=== PATIENT | male | born 1945 | race American Indian/Alaskan Native ===

== ENCOUNTER 2017-11-08 23:22 | Observation (INO) | payer OTHER, MEDICARE ==
[2017-11-09 01:07] LABS: Basophils # (Auto) 0.1 K/mm3 (0.0-0.1); Basophils % (Auto) 1.2 % (0.0-1.8); Eosinophils # (Auto) 0.2 K/mm3 (0.0-0.4); Eosinophils % (Auto) 3.4 % (0.0-4.3); Lymphocytes # (Auto) 1.7 K/mm3 (1.2-5.4); Lymphocytes % (Auto) 25.6 % (13.4-35.0); Mean Corpuscular HGB Conc 36 % (32-34); Mean Corpuscular Hemoglobin 34 pg (28-32); Mean Corpuscular Volume 93 fl (84-94); Monocytes # (Auto) 0.5 K/mm3 (0.0-0.8); Monocytes % (Auto) 7.5 % (0.0-7.3); Platelet Count 329 K/mm3 (140-440); Red Blood Count 4.08 M/mm3 (3.65-5.03); Red Cell Distribution Width 12.7 % (13.2-15.2)
[2017-11-09 01:13] LABS: Hematocrit 38.1 % (35.5-45.6); Hemoglobin 13.9 gm/dl (11.8-15.2)
[2017-11-09 01:32] LABS: BUN/Creatinine Ratio 31; Blood Urea Nitrogen 25 mg/dL (9-20); Calcium 9.8 mg/dL (8.4-10.2); Hemolysis Index 5
--- NOTE | 2017-11-09 03:31 | Emergency Department Report ---
ED Chest Pain HPI - General Chief Complaint: Chest Pain Stated Complaint: CHEST PAIN/LEFT SIDE NUMBNESS Time Seen by Provider: 11/09/17 03:30 Source: patient, RN notes reviewed Mode of arrival: Ambulatory Limitations: No Limitations - History of Present Illness Initial Comments: This is a 72-year-old male who is unknown to this provider previously. His primary care doctor is Dr. Enamorado and he endorses a past medical history of hypertension. The patient presents to the ER with a complaint of nontraumatic Left-sided and central chest pain. It is intermittent and he is chest pain- free at this time. This pain is associated with left arm numbness. He denies nausea, vomiting, diaphoresis, shortness of breath, hematemesis, bright red blood per rectum. The pain does not have exacerbating or relieving factors. He denies DVT, pulmonary embolus risk factors. No recent aspirin use, no recent cocaine use, no history of family heart disease that he is aware of, and he indicates no recent cardiac risk stratification. MD Complaint: chest pain -: Gradual Pain Location: substernal, left chest Pain Radiation: none Severity: moderate (now resolved) Severity scale (0 -10): 7 Quality: aching Consistency: intermittent Improves With: nothing Worsens With: nothing re: denies: nausea, vomting, diaphoresis, dyspnea, sense of impending doom Treatments Prior to Arrival: none Aspirin use within the Past 7 Days: (0) No - Related Data On Oral Contraceptives: No Allergies Allergy/AdvReac Type Severity Reaction Status Date / Time No Known Allergies Allergy Verified 11/09/17 00:23 Heart Score - HEART Score History: Moderately suspicious EKG: Non-specific Age: > 65 Risk factors: 1-2 risk factors Troponin: 1-3x normal limit HEART Score: 6 - Critical Actions Critical Actions: 4-6 pts:12-16.6% risk of adverse cardiac event. Should be admitted ED Review of Systems ROS: Stated complaint: CHEST PAIN/LEFT SIDE NUMBNESS Other details as noted in HPI Comment: All other systems reviewed and negative Constitutional: denies: diaphoresis Eyes: denies: eye discharge ENT: denies: epistaxis Respiratory: denies: cough Cardiovascular: chest pain Gastrointestinal: denies: vomiting Genitourinary: as per HPI Musculoskeletal: as per HPI Skin: as per HPI Neurological: as per HPI Psychiatric: as per HPI ED Past Medical Hx - Past Medical History Hx Hypertension: Yes - Surgical History Past Surgical History?: No - Social History Smoking Status: Never Smoker Substance Use Type: None ED Physical Exam - General Limitations: No Limitations General appearance: alert, in no apparent distress - Head Head exam: Present: atraumatic, normocephalic - Eye Eye exam: Present: normal appearance, EOMI. Absent: nystagmus - ENT ENT exam: Present: normal exam, normal orophraynx, mucous membranes moist, normal external ear exam - Neck Neck exam: Present: normal inspection, full ROM - Respiratory Respiratory exam: Present: normal lung sounds bilaterally. Absent: respiratory distress - Cardiovascular Cardiovascular Exam: Present: regular rate, normal rhythm, normal heart sounds. Absent: bradycardia, tachycardia, irregular rhythm, systolic murmur, diastolic murmur, rubs, gallop - GI/Abdominal GI/Abdominal exam: Present: soft, normal bowel sounds. Absent: distended, tenderness, guarding, rebound, rigid, pulsatile mass - Rectal Rectal exam: Present: deferred - Extremities Exam Extremities exam: Present: normal inspection, full ROM, normal capillary refill , other (2+ pulses noted in the bilateral upper, lower extremities. Compartments soft. No long bony tenderness. The pelvis is stable.). Absent: tenderness, pedal edema, joint swelling, calf tenderness (there is no palpable cord. There is a negative Homans sign.) - Back Exam Back exam: Present: normal inspection, full ROM. Absent: tenderness, CVA tenderness (R), paraspinal tenderness, vertebral tenderness - Neurological Exam Neurological exam: Present: alert, oriented X3, CN II-XII intact, normal gait, other (Extraocular movements intact. Tongue midline. No facial droop. Facial sensation intact to light touch in the V1, V2, V3 distribution bilaterally. 5 and 5 strength in 4 extremities.. Sensation is intact to light touch in 4 extremities.). Absent: motor sensory deficit - Psychiatric Psychiatric exam: Present: normal affect, normal mood - Skin Skin exam: Present: warm, dry, intact, normal color. Absent: rash ED Course Vital Signs 11/08/17 11/09/17 11/09/17 23:35 02:14 03:00 Temperature 98.2 F 97.9 F Pulse Rate 68 69 58 L Respiratory 16 22 17 Rate Blood Pressure 168/84 149/87 Blood Pressure 165/98 [Left] O2 Sat by Pulse 97 98 95 Oximetry 11/09/17 04:00 Temperature Pulse Rate 62 Respiratory 18 Rate Blood Pressure 150/84 Blood Pressure [Left] O2 Sat by Pulse 96 Oximetry EMELYN score - Emelyn Score Age > 65: (1) Yes Aspirin use within the Past 7 Days: (0) No 3 or more CAD Risk Factors: (0) No 2 or more Angina events in past 24 hrs: (0) No Known CAD with more than 50% Stenosis: (0) No Elevated Cardiac Markers: (1) Yes ST Deviation Greater than 0.5mm: (0) No EMELYN Score: 2 ED Medical Decision Making - Lab Data Result diagrams: 11/09/17 00:45 11/09/17 00:45 - EKG Data -: EKG Interpreted by Me EKG shows normal: sinus rhythm, axis, intervals, QRS complexes, ST-T waves - EKG Data When compared to previous EKG there are: previous EKG unavailable - Radiology Data Radiology results: image reviewed interpreted by me: x-ray the chest is negative for acute disease. - Medical Decision Making Differential diagnosis, including but not limited to: Acute coronary syndrome, pneumonia, pericarditis, myocarditis, pneumothorax Assessment and plan: 72-year-old male, low risk by well's criteria, denies pulmonary embolus, DVT risk factors, with chest pain that is moderate risk by the heart score. Initial troponin is negative, subsequently positive. He is chest pain-free at this time. X-ray the chest is unremarkable. Patient will be admitted to the hospital for moderate risk cardiac risk stratification. Case is discussed with consult and cardiology, Dr. Mark Dawn, and Dr Castro, the hospital physician Cardiology will follow in consultation, and the hospital team/hospitalist agreed to admit the patient this plan is discussed with the patient and he is amenable to hospital admission for further evaluation and workup. Critical care attestation.: If time is entered above; I have spent that time in minutes in the direct care of this critically ill patient, excluding procedure time. ED Disposition Clinical Impression: Chest pain, Elevated troponin I level Disposition: OP ADMIT IP TO THIS HOSP Is pt being admited?: Yes Does the pt Need Aspirin: Yes Condition: Good Instructions: Chest Pain (ED) Referrals: PRIMARY CARE, [Primary Care Provider] - 3-5 Days
[2017-11-09] MEDS ORDERED: BABY ASPIRIN PO ONE (03:43)
--- NOTE | 2017-11-09 04:20 | XRay Report ---
FINAL REPORT EXAM: XR CHEST ROUTINE 2V HISTORY: cp TECHNIQUE: PA and lateral chest radiographs PRIORS: None. FINDINGS: No mediastinal shift. Cardiac silhouette is not enlarged. No pneumothorax, effusion, or focal pulmonary opacity. No acute skeletal finding. IMPRESSION: No focal pulmonary opacity.
[2017-11-09 04:33] LABS: Chol/HDL Ratio 3.75 %
[2017-11-09] MEDS ORDERED: NITROSTAT SL PRN (04:50)
--- NOTE | 2017-11-09 08:39 | History and Physical Report ---
History of Present Illness Date of examination: 11/09/17 Date of admission: 11/09/17 Chief complaint: chest pain History of present illness: This is a 72-year-old male with h/o HTN on lisinopril primary care doctor is Dr. Enamorado presents to the ER with a complaint of Left-sided and central chest pain. the pain described as intermittent pressure type, associated with left arm numbness w/o nausea, vomiting, diaphoresis, shortness of breath. Pain lasted for more than a hour and he is chest pain-free at this time of encounter. The pain does not have exacerbating or relieving factors. He has no recent aspirin use, no recent cocaine use, no history of family heart disease that he is aware of, and he indicates no recent cardiac work up ever done. he noted to have elevated troponin in the ER, nonspecific changes in EKG. he is getting admitted for further evaluation and management. Past medical History: h/o HTN Past surgical History: None Social History: Lives with family, denies any smoking, drinking and elicit drug abuse. Family History: No known FH of HD, CVA or lung disease Review of System: Constitutional: no fever, no chills, no weight loss Ears, eyes, nose, mouth and throat: no nasal congestion, no nasal discharge, no sinus pressure, no vision change, no red eye. Neck: No neck pain or rigidity. Cardiovascular: +chest pain but now resolved, no orthopnea, no palpitations, no leg swelling Respiratory: No shortness of breath, no cough, no congestion, no wheezing Gastrointestinal: no abdominal pain, no nausea, no vomiting Genitourinary : no dysuria, no hematuria Musculoskeletal: no joint swelling or muscle ache Integumentary: no rash, no pruritis Neurological: no parathesias, no numbness, no tingling Endocrine: no cold or heat intolerance, no polyuria or polydipsia Hematologic/Lymphatic: no easy bruising, no easy bleeding, no gland swelling Allergic/Immunologic: no urticaria, no angioedema. Medications and Allergies Allergies Allergy/AdvReac Type Severity Reaction Status Date / Time No Known Allergies Allergy Verified 11/09/17 00:23 Home Medications Medication Instructions Recorded Confirmed Last Taken Type Hydrochlorothiazide [Hctz] 12.5 mg PO QDAY 11/09/17 11/09/17 1 Day Ago History ~11/08/17 Lisinopril [Zestril] 40 mg PO DAILY 11/09/17 11/09/17 1 Day Ago History ~11/08/17 Active Meds: Active Medications Nitroglycerin (Nitrostat) 0.4 mg SL .Q5MIN PRN PRN Reason: Chest Pain Exam - Physical Exam Narrative exam: GENERAL: well-developed and well-nourished AAM lying on bed appeared to be in no discomfort. HEENT: Normocephalic. Atraumatic. No conjunctival congestion or icterus. Patient has moist mucous membranes. NECK: Supple. Trachea midline. CHEST/LUNGS: Clear to auscultated bilaterally, breathing nonlabored. No wheezes crackles or rhonchi. HEART/CARDIOVASCULAR: Regular in rate and rhythm. S1 and S2 positive. ABDOMEN: Abdomen is soft, nontender. Patient has normal bowel sounds. SKIN: There is no rash. Warm and dry. NEURO: No focal motor deficit. Follows command. MUSCULOSKELETAL: No joint effusion or tenderness. EXTRIMITY: No edema, no cyanosis or clubbing. PSYCH: Cooperative. - Constitutional Vitals: Temp Pulse Resp BP Pulse Ox 97.9 F 57 L 15 139/78 96 11/09/17 02:14 11/09/17 07:00 11/09/17 07:00 11/09/17 07:00 11/09/17 07:00 Results - Labs CBC & Chem 7: 11/10/17 06:19 11/10/17 06:19 Labs: Abnormal lab results 11/09/17 11/09/17 11/09/17 Range/Units 00:45 00:45 03:42 MCH 34 H (28-32) pg MCHC 36 H (32-34) % RDW 12.7 L (13.2-15.2) % [place] % (Auto) 7.5 H (0.0-7.3) % BUN 25 H (9-20) mg/dL Troponin T 0.030 H D (0.00-0.029) ng/mL 11/09/17 Range/Units 06:52 MCH (28-32) pg MCHC (32-34) % RDW (13.2-15.2) % [place] % (Auto) (0.0-7.3) % BUN (9-20) mg/dL Troponin T 0.048 H D (0.00-0.029) ng/mL - Imaging and Cardiology Chest x-ray: report reviewed (no infiltrates) Assessment and Plan chest pain with elevated troponin/NSTEMI - will admit to telemetry bed - monitor with serial CE and EKG - will place on Aspirin, statin - as needed SL NTG and iv morphin for pain - order 2D echo and stress test today - cardiac diet now, consulted cardiology - provide therapeutic dose of lovenox HTN, - Monitor BP, add low dose norvasc - No BB for low HR, no ACEI had cough with lisinoril DVT Px, on lovenox
[2017-11-09] MEDS ORDERED: LOVENOX SUB-Q SCH ×2 (10:00)
[2017-11-09] MEDS: ASPIRIN PO SCH (11:48)
--- NOTE | 2017-11-09 11:48 | Consultation ---
History of Present Illness Consult date: 11/09/17 Medications and Allergies Allergies Allergy/AdvReac Type Severity Reaction Status Date / Time No Known Allergies Allergy Verified 11/09/17 00:23 Active Meds: Active Medications Aspirin (Aspirin) 325 mg PO QDAY RAUL Atorvastatin Calcium (Lipitor) 40 mg PO QHS [facility] Enoxaparin Sodium (Lovenox) 80 mg 1 mg/kg (80 mg) SUB-Q Q12HR RAUL Nitroglycerin (Nitrostat) 0.4 mg SL .Q5MIN PRN PRN Reason: Chest Pain Physical Examination Vital Signs Temp Pulse Resp BP Pulse Ox 98.2 F 68 16 168/84 97 11/08/17 23:35 11/08/17 23:35 11/08/17 23:35 11/08/17 23:35 11/08/17 23:35 Results 11/09/17 00:45 11/09/17 00:45 Lipids 11/09/17 Range/Units 03:42 Triglycerides 147 (2-149) mg/dL Cholesterol 180 (50-199) mg/dL HDL Cholesterol 48 (40-59) mg/dL Cholesterol/HDL Ratio 3.75 % CBC 11/09/17 Range/Units 00:45 WBC 6.5 (4.5-11.0) K/mm3 RBC 4.08 (3.65-5.03) M/mm3 Hgb 13.9 (11.8-15.2) gm/dl Hct 38.1 (35.5-45.6) % Plt Count 329 (140-440) K/mm3 Lymph # 1.7 (1.2-5.4) K/mm3 [place] # 0.5 (0.0-0.8) K/mm3 Eos # 0.2 (0.0-0.4) K/mm3 Baso # 0.1 (0.0-0.1) K/mm3 Comprehensive Metabolic Panel 11/09/17 Range/Units 00:45 Sodium 140 (137-145) mmol/L Potassium 4.7 (3.6-5.0) mmol/L Chloride 99.6 (98-107) mmol/L Carbon Dioxide 29 (22-30) mmol/L BUN 25 H (9-20) mg/dL Creatinine 0.8 (0.8-1.5) mg/dL Glucose 91 (75-100) mg/dL Calcium 9.8 (8.4-10.2) mg/dL Assessment and Plan full consult dictated thx
--- NOTE | 2017-11-09 16:09 | Event Note ---
Date: 11/09/17 Treadmill stress test terminated due to very poor exercise tolerance and ECG changes. Coronary angiography recommended for definitive diagnosis. Indications , potential risks and benefits of LHC reviewed with pt and he is agreeable to proceed in AM. NPO after MN. D/w Dr. Multani. Pascale MIKE, [employer] COUN[employer] / DR. Bridger ZIMMERMAN
[2017-11-09] MEDS ORDERED: NACL 0.9% 500 ML 500 ML IV SCH (17:00)
--- NOTE | 2017-11-09 23:40 | Consultation ---
CARDIOLOGY CONSULTATION Seen in the Emergency Room. REFERRING PHYSICIAN: ER physician, Dr. Jimenez. REASON FOR CONSULTATION: Advice and opinion regarding chest pain. 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 Describes the chest pain as sharp, occasional left arm numbness, not exertional. No chest pain since arrival. No syncope or presyncope. Relatively active in general, lifetime nonsmoker, nondrinker. Happily , 1 child; 1 daughter who is a pharmacist in pharmacy school. He used to live in the [facility], moved to this area recently. Currently without any symptoms, feels " PAST MEDICAL HISTORY: Hypertension. FAMILY HISTORY: No family history of premature heart disease. MEDICATIONS: Lisinopril at home. ALLERGIES: No known drug, food, or environmental allergies. REVIEW OF SYSTEMS: As per HPI. No bleeding, hematochezia, hemoptysis, hematemesis, nausea, vomiting, fever, chills, blurred vision, headache or rashes. PHYSICAL EXAMINATION: VITAL SIGNS: Blood pressure is 118/70, is afebrile. Tele reveals sinus rhythm with a heart rate in his 50s and 60s. O2 sats 98% on room air. GENERAL: This is an elderly gentleman, in no apparent distress, oriented x 3. HEENT: Sclerae are anicteric. PERRLA. NECK: Supple, no masses, no JVD. CHEST: Clear to auscultation bilaterally, good air movement. CARDIOVASCULAR: Regular rhythm, S1, S2. ABDOMEN: Soft, nontender, nondistended. Normoactive bowel sounds in 4 quadrants. No mass or bruits. EXTREMITIES: No cyanosis, clubbing, edema. Good peripheral pulses. SKIN: Intact. No rashes. EKG reveals normal sinus rhythm, no acute ST segment shift. LABORATORY DATA: Troponin 0.03, 0.04. Creatinine normal. WBC 6.5, hemoglobin is 13.9, hematocrit 38.1, platelets 329. Chest x-ray is unremarkable per Radiology. CONCLUSION: In summary, the patient is a very pleasant 72-year-old gentleman: 1. Chest pain with mostly atypical features, unremarkable troponins, EKG. Chest pain now resolved. 2. History of hypertension. We will check an echocardiogram. Treadmill stress test. We will follow up once these tests are completed. He has been given aspirin and statin therapy. Also started on enoxaparin. Further plans based on test results. Thank you for this kind consultation. I will be happy to follow along with you. JOB# [id number] DANAY/NTS
[2017-11-10 06:56] LABS: Basophils # (Auto) 0.1 K/mm3 (0.0-0.1); Eosinophils # (Auto) 0.2 K/mm3 (0.0-0.4); Eosinophils % (Auto) 3.7 % (0.0-4.3); Hematocrit 39.7 % (35.5-45.6); Hemoglobin 13.3 gm/dl (11.8-15.2); Lymphocytes # (Auto) 2.5 K/mm3 (1.2-5.4); Mean Corpuscular HGB Conc 34 % (32-34); Mean Corpuscular Hemoglobin 32 pg (28-32); Mean Corpuscular Volume 95 fl (84-94); Monocytes # (Auto) 0.5 K/mm3 (0.0-0.8); Monocytes % (Auto) 8.6 % (0.0-7.3); Platelet Count 317 K/mm3 (140-440); Red Blood Count 4.16 M/mm3 (3.65-5.03); Red Cell Distribution Width 12.8 % (13.2-15.2)
[2017-11-10 07:06] LABS: INR 1.02 (0.87-1.13)
[2017-11-10 07:17] LABS: BUN/Creatinine Ratio 30; Blood Urea Nitrogen 21 mg/dL (9-20); Calcium 9.3 mg/dL (8.4-10.2); Hemolysis Index 4
[2017-11-10] MEDS ORDERED: HEPARIN/NS 5000 UNIT/500ML(CATH LAB) 1,000 ML IR ONE (09:03)
[2017-11-10] MEDS ORDERED: HEPARIN 10,000 UNITS/10 ML ONE (09:04)
[2017-11-10] MEDS ORDERED: NITROGLYCERIN SYRINGE 3 ML ONE (09:04)
[2017-11-10] MEDS ORDERED: NACL 0.9% 500 ML 500 ML ONE (09:04)
[2017-11-10] MEDS ORDERED: CALAN ONE (09:04)
[2017-11-10] MEDS: ASPIRIN PO SCH (09:17)
[2017-11-10] MEDS: SUBLIMAZE ONE ×2 (09:52→09:55)
[2017-11-10] MEDS: VERSED ONE ×2 (09:52→09:55)
[2017-11-10] MEDS: XYLOCAINE 2% INFILTRATI ONE ×2 (09:52→09:55)
[2017-11-10] MEDS ORDERED: NACL 0.9% 50 ML ONE (10:03)
[2017-11-10] MEDS: ANGIOMAX IV ONE ×2 (10:04→10:08)
[2017-11-10] MEDS ORDERED: ATROPINE 0.1% (CARDIAC) ONE (10:08)
[2017-11-10] MEDS ORDERED: ALUM-MAG HYDROX-SIMETH 200-200-20MG/5ML ONE (10:36)
[2017-11-10] MEDS ORDERED: EFFIENT PO ONE (10:36)
--- NOTE | 2017-11-10 11:27 | Cardiac Catherization Report ---
CARDIAC CATHETERIZATION REFERRING PHYSICIAN: Dr. Multani INDICATIONS FOR PROCEDURE: The patient is an exceedingly pleasant 72-year-old -[place] gentleman with multiple risk factors, presents with unstable angina, found to have a markedly abnormal treadmill stress test, referred for left heart catheterization, symptomatic on antianginals. Risks, benefits, alternatives were discussed at length prior to obtaining informed consent. PROCEDURE IN DETAIL: The patient was brought to the catheterization lab in postabsorptive state, prepped and draped in sterile fashion. Alan's test in right hand was normal. A 2 mL of 2% lidocaine was used to anesthetize the right wrist. A standard 6-Japanese hydrophilic sheath was used to cannulate the right radial artery via modified Seldinger technique. All exchanges were performed to exchange a J-tip guidewire. A JL3.5 catheter was used to engage the left main. No dampening or ventricularization. Cineangiography was performed in all projections. JR4 catheter was used to cross the aortic valve under fluoroscopic guidance. Left ventriculography was performed in 30 LOZA and MIGUEL A projections via hand injections, catheter flushed, manual pullback performed. Continuous pressure monitoring. Catheter was used to engage the right coronary. No dampening or ventricularization. Cineangiography was performed in all projections. Next, catheter was removed from the body of wire. I directly supervised the administration of moderate sedation from 9:50-10:25 with fentanyl and Versed. DATA: Aortic pressure is 170/70, LV pressure is 170, LVP of 12 mmHg. Left ventriculography revealed normal systolic performance with estimated ejection fraction of 55-60%. No evidence of aortic stenosis. CORONARY ANATOMY: Left main without significant disease, bifurcates in left anterior descending and left circumflex. Left circumflex is a moderate sized vessel, courses AV groove. No significant disease noted. LAD is a moderate sized vessel, courses anterior intergroove, wraps around the apex, no significant disease; however, left to right collaterals are identified. No significant disease in the left system. Right coronary reveals a 99% distal lesion with EMELYN 2 flow. This is the culprit lesion. Given the patient's on antianginals ischemia noted on treadmill EKG and symptoms, we decided to proceed with PCI. Angiomax was given. Abnormal ACT is confirmed. A 6-Japanese JR4 sidehole guide catheter was used to engage the vessel. The patient was loaded with aspirin, Effient. A [place] wire was used to cross the lesion without difficulty, predilated 2.0 x 8 balloon. We used a 2.25 x 12 Resolute drug-eluting stent deployed at 10 FERNANDO for 30 seconds. Excellent angiographic result. Intravascular ultrasound was performed and multiple passes were made revealed a well-opposed and well-expanded stent. Final angiogram reveals no complications. The patient tolerated the procedure well. There, IVUS revealed mild luminal irregularities throughout the remainder of the right coronary including ostium, maximal narrowing approximately a 20% in the mid segment. Excellent final angiographic and ultrasonographic results. CONCLUSIONS: 1. Severe single vessel coronary artery disease with a 99% distal right coronary stenosis with EMELYN 2 flow culprit lesion. Successful IVUS-guided PCI with placement of a drug-eluting stent (Resolute 2.25 x 12) with excellent final angiographic and angiographic results. 2. Nonobstructive disease in left system. 3. Preserved left ventricular systolic performance, estimated ejection fraction of 55-60%. 4. No evidence of aortic stenosis. At this point, continue medical management, risk factor modification, dual antiplatelet therapy, statin therapy, blood pressure control, standard groin care. The patient is stable to be transferred to telemetry. Results of procedure explained to the patient and family. All questions were addressed. JOB# [id number] DANAY/RAVINDER
--- NOTE | 2017-11-10 14:29 | Progress Note ---
Assessment and Plan Assessment: NSTEMI type I CAD s/p PCI of RCA HTN Plan: S/p [facility] with PCI of RCA this AM. Initiate DAPT with ASA and effient. Initiate low dose lopressor and resume home lisinopril. Cont lipitor. Cont observation on tele overnight. Likely d/c home in AM. The patient has been seen in conjunction with Dr. Fried who agrees with the assessment and plan of care. Subjective Date of service: 11/10/17 Principal diagnosis: cp Interval history: pt for [facility] today. no current complaints. Objective Last Vital Signs Temp 97.8 F 11/10/17 10:53 Pulse 78 11/10/17 14:15 Resp 16 11/10/17 14:15 BP 135/77 11/10/17 14:15 Pulse Ox 98 11/10/17 14:15 - Physical Examination General: No Apparent Distress HEENT: Positive: PERRL, Normocephaly, Mucus Membranes Moist Neck: Positive: neck supple, trachea midline Cardiac: Positive: Reg Rate and Rhythm, S1/S2 Lungs: Positive: clear to auscultation Neuro: Positive: Grossly Intact Abdomen: Positive: Soft. Negative: Tender Skin: Positive: Clear. Negative: Rash, Wound Musculoskeletal: No Fluid Collection, No Pain, Normal Range of Motion Extremities: Absent: edema - Labs and Meds Coagulation 11/10/17 Range/Units 06:19 PT 13.9 (12.2-14.9) Sec. INR 1.02 (0.87-1.13) CBC 11/10/17 Range/Units 06:19 WBC 5.4 (4.5-11.0) K/mm3 RBC 4.16 (3.65-5.03) M/mm3 Hgb 13.3 (11.8-15.2) gm/dl Hct 39.7 (35.5-45.6) % Plt Count 317 (140-440) K/mm3 Lymph # 2.5 (1.2-5.4) K/mm3 [place] # 0.5 (0.0-0.8) K/mm3 Eos # 0.2 (0.0-0.4) K/mm3 Baso # 0.1 (0.0-0.1) K/mm3 Comprehensive Metabolic Panel 11/10/17 Range/Units 06:19 Sodium 140 (137-145) mmol/L Potassium 4.6 (3.6-5.0) mmol/L Chloride 101.0 (98-107) mmol/L Carbon Dioxide 29 (22-30) mmol/L BUN 21 H (9-20) mg/dL Creatinine 0.7 L (0.8-1.5) mg/dL Glucose 93 (75-100) mg/dL Calcium 9.3 (8.4-10.2) mg/dL - Imaging and Cardiology EKG: report reviewed, image reviewed
--- NOTE | 2017-11-10 15:23 | Progress Note ---
Assessment and Plan chest pain with elevated troponin/NSTEMI-1 - had abnormal stress test - S/p C with PCI of RCA this AM. - Initiated DAPT with ASA and effient. started on low dose lopressor and resumed home lisinopril. Cont lipitor. - cardiac diet now, cardiology following - provide therapeutic dose of lovenox HTN, - Monitor BP, DVT Px, on lovenox Disposition: likely in the am Subjective Date of service: 11/10/17 Principal diagnosis: cp Interval history: Patient seen and examined Denies chest pain, s/p cardiac cath today Objective - Exam Narrative Exam: GENERAL: well-developed and well-nourished AAM lying on bed appeared to be in no discomfort. HEENT: Normocephalic. Atraumatic. No conjunctival congestion or icterus. Patient has moist mucous membranes. NECK: Supple. Trachea midline. CHEST/LUNGS: Clear to auscultated bilaterally, breathing nonlabored. No wheezes crackles or rhonchi. HEART/CARDIOVASCULAR: Regular in rate and rhythm. S1 and S2 positive. ABDOMEN: Abdomen is soft, nontender. Patient has normal bowel sounds. SKIN: There is no rash. Warm and dry. NEURO: No focal motor deficit. Follows command. MUSCULOSKELETAL: No joint effusion or tenderness. EXTRIMITY: No edema, no cyanosis or clubbing. PSYCH: Cooperative. - Constitutional Vitals: Vital Signs - 12hr 11/10/17 11/10/17 11/10/17 05:06 08:03 09:23 Temperature 98.0 F 98.7 F Pulse Rate 67 69 Respiratory 20 18 20 Rate Blood Pressure 159/79 157/93 O2 Sat by Pulse 96 97 97 Oximetry 11/10/17 11/10/17 11/10/17 10:53 11:00 11:15 Temperature 97.8 F Pulse Rate 66 66 67 Respiratory 18 16 18 Rate Blood Pressure 149/83 144/83 138/80 O2 Sat by Pulse 94 95 96 Oximetry 11/10/17 11/10/17 11/10/17 11:30 11:45 12:15 Temperature Pulse Rate 67 69 73 Respiratory 16 18 21 Rate Blood Pressure 127/80 126/80 141/81 O2 Sat by Pulse 94 96 96 Oximetry 11/10/17 11/10/17 11/10/17 12:45 13:15 13:45 Temperature Pulse Rate 65 72 81 Respiratory 21 16 18 Rate Blood Pressure 129/81 141/78 148/79 O2 Sat by Pulse 97 99 99 Oximetry 11/10/17 11/10/17 14:15 14:41 Temperature Pulse Rate 78 82 Respiratory 16 18 Rate Blood Pressure 135/77 138/76 O2 Sat by Pulse 98 95 Oximetry - Labs CBC & Chem 7: 11/10/17 06:19 11/10/17 06:19 Labs: Abnormal lab results 11/10/17 11/10/17 Range/Units 06:19 06:19 MCV 95 H (84-94) fl RDW 12.8 L (13.2-15.2) % Lymph % (Auto) 47.0 H (13.4-35.0) % [place] % (Auto) 8.6 H (0.0-7.3) % Seg Neutrophils % 39.7 L (40.0-70.0) % BUN 21 H (9-20) mg/dL Creatinine 0.7 L (0.8-1.5) mg/dL
[2017-11-10] MEDS: LOPRESSOR PO SCH (21:11)
[2017-11-11] MEDS: LOPRESSOR PO SCH (09:19)
[2017-11-11] MEDS ORDERED: ZESTRIL PO SCH (10:00)
[2017-11-11] MEDS ORDERED: BABY ASPIRIN PO SCH (10:00)
[2017-11-11] MEDS ORDERED: EFFIENT PO SCH (10:00)
--- NOTE | 2017-11-11 11:14 | Progress Note ---
Assessment and Plan cv stable rra site looks good no sxs ecg and labs look good discussed importance of compliance with meds aggie dapt may go - f/u with me in 1-2 weeks Subjective Date of service: 11/11/17 Principal diagnosis: cp Interval history: no complaints no cp or sob Objective Vital Signs Temp Pulse Pulse Resp BP BP Pulse Ox 11/11/17 09:20 64 134/72 11/11/17 09:19 64 134/72 11/11/17 08:00 98.2 F 11/11/17 07:35 64 20 134/72 96 11/11/17 04:03 98.3 F 61 16 123/64 98 11/11/17 01:04 98 11/11/17 00:59 65 11/10/17 23:27 98.5 F 65 16 136/85 97 11/10/17 21:11 86 134/63 11/10/17 19:41 98.0 F 86 16 134/63 98 11/10/17 18:32 85 18 150/86 96 11/10/17 17:42 71 146/89 99 11/10/17 17:41 82 192/103 96 11/10/17 17:39 99.4 F 74 20 169/87 97 11/10/17 16:38 98.2 F 69 18 138/88 94 11/10/17 15:24 99.0 F 134/75 11/10/17 15:14 82 144/78 96 11/10/17 14:41 82 18 138/76 95 11/10/17 14:27 75 169/89 11/10/17 14:15 78 16 135/77 98 11/10/17 13:45 81 18 148/79 99 11/10/17 13:15 72 16 141/78 99 11/10/17 12:45 65 21 129/81 97 11/10/17 12:15 73 21 141/81 96 11/10/17 11:45 69 18 126/80 96 11/10/17 11:30 67 16 127/80 94 11/10/17 11:15 67 18 138/80 96 - Physical Examination General: No Apparent Distress HEENT: Positive: PERRL, Normocephaly, Mucus Membranes Moist Neck: Positive: neck supple, trachea midline Neuro: Positive: Grossly Intact Abdomen: Positive: Soft. Negative: Tender Skin: Positive: Clear. Negative: Rash, Wound Musculoskeletal: No Fluid Collection, No Pain, Normal Range of Motion Extremities: Absent: edema - Imaging and Cardiology EKG: report reviewed, image reviewed
--- NOTE | 2017-11-11 12:46 | Discharge Summary ---
Providers - Providers Date of Admission: 11/09/17 08:39 Date of discharge: 11/11/17 Attending physician: LAUREANO COLORADO 11/09/17 04:50 Consult to Physician [CONS] Urgent Comment: Dr. Jimenez spoke with Dr. Bridger Zimmerman @ 0445 Consulting Provider: MARISA ZIMMERMAN Physician Instructions: Reason For Exam: cp + troponin 11/10/17 14:27 Consult to Cardiac Rehabilitation [CONS] Routine Reason For Exam: Cardiac Rehab Evaluation Primary care physician: [employer] Hospitalization Condition: Good Hospital course: Discharge diagnosis: Chest pain with elevated troponin/NSTEMI-1 - had abnormal stress test - S/p [facility] with PCI of RCA this AM. - Initiated DAPT with ASA and effient. started on low dose lopressor and resumed home lisinopril. Cont lipitor. - cardiac diet now, cardiology following - provide therapeutic dose of lovenox HTN, - Monitor BP, DVT Px, on lovenox Disposition: DC-01 TO HOME OR SELFCARE Time spent for discharge: 32 minutes Core Measure Documentation - Palliative Care Palliative Care/ Comfort Measures: Not Applicable - Core Measures Any of the following diagnoses?: none Exam - Physical Exam Narrative exam: GENERAL: well-developed and well-nourished AAM lying on bed appeared to be in no discomfort. HEENT: Normocephalic. Atraumatic. No conjunctival congestion or icterus. Patient has moist mucous membranes. NECK: Supple. Trachea midline. CHEST/LUNGS: Clear to auscultated bilaterally, breathing nonlabored. No wheezes crackles or rhonchi. HEART/CARDIOVASCULAR: Regular in rate and rhythm. S1 and S2 positive. ABDOMEN: Abdomen is soft, nontender. Patient has normal bowel sounds. SKIN: There is no rash. Warm and dry. NEURO: No focal motor deficit. Follows command. MUSCULOSKELETAL: No joint effusion or tenderness. EXTRIMITY: No edema, no cyanosis or clubbing. PSYCH: Cooperative. - Constitutional Vitals: Temp Pulse Resp BP Pulse Ox 98.2 F 64 20 134/72 96 11/11/17 08:00 11/11/17 09:20 11/11/17 07:35 11/11/17 09:20 11/11/17 07:35 Plan Activity: advance as tolerated Weight Bearing Status: Weight Bear as Tolerated Diet: low cholesterol, low salt Additional Instructions: f/u [facility] cardiology in 2 weeks Follow up with: PRIMARY CARE, [Primary Care Provider] - 3-5 Days Prescriptions: AtorvaSTATin [Lipitor] 40 mg PO QHS #30 tablet Aspirin [Aspirin BABY CHEW TAB] 81 mg PO QDAY #30 tab.chew Lisinopril [Zestril TAB] 20 mg PO QDAY #30 tablet Metoprolol [Lopressor TAB] 12.5 mg PO BID #30 tablet Nitroglycerin [Nitrostat] 0.4 mg SL .Q5MIN PRN #30 tablet PRN Reason: Chest Pain Prasugrel [Effient] 10 mg PO QDAY #30 tablet
[2017-11-11 13:15] VITALS: BP 127/68
== END 2017-11-11 16:02 | disposition home or self-care (01) ==
LOC: ED 23:22 → 4A 11-09 08:39
PROVIDERS: ADMIT Internal Medicine; ATTEND Internal Medicine
DX: I25.110 Atherosclerotic heart disease of native coronary artery with unstable angina pectoris (principal); I21.4 Non-ST elevation (NSTEMI) myocardial infarction; I10 Essential (primary) hypertension; R79.89 Other specified abnormal findings of blood chemistry; R94.39 Abnormal result of other cardiovascular function study
CPT/HCPCS: 36415; 71046; 80048; 80061; 84484; 85025; 85347; 85610; 92978; 93005; 93010; 93017; 93306; 93458; 96372; 99285; A9270; C1725; C1753; C1769; C1874; C1887; C1894; C9600; G0378; J0461; J0583; J1644; J1650; J2250; J3010; J7040; 92928; 96374; Q9967

== ENCOUNTER 2017-11-25 08:35 | Emergency (ER) | payer OTHER, MEDICARE ==
[2017-11-25 09:00] VITALS: BP 161/81
--- NOTE | 2017-11-25 09:43 | Emergency Department Report ---
ED General Adult HPI - General Chief complaint: Medical Clearance Stated complaint: CANT SLEEP Time Seen by Provider: 11/25/17 09:33 Source: patient Mode of arrival: Ambulatory Limitations: No Limitations - History of Present Illness Initial comments: Patient is 72 years old male with history of coronary artery disease. Recently discharged from the hospital. Patient presented to the ER today complaining of unable to sleep for the last 3 days. Patient denied any chest pain, shortness of breath, abdominal pain, nausea, vomiting or headache. Patient denied any depression or suicidal or homicidal ideation. - Related Data Previous Rx's Medication Instructions Recorded Last Taken Type Aspirin [Aspirin BABY CHEW TAB] 81 mg PO QDAY #30 tab.chew 11/11/17 Unknown Rx AtorvaSTATin [Lipitor] 40 mg PO QHS #30 tablet 11/11/17 Unknown Rx Lisinopril [Zestril TAB] 20 mg PO QDAY #30 tablet 11/11/17 Unknown Rx Metoprolol [Lopressor TAB] 12.5 mg PO BID #30 tablet 11/11/17 Unknown Rx Nitroglycerin [Nitrostat] 0.4 mg SL .Q5MIN PRN #30 tablet 11/11/17 Unknown Rx Prasugrel [Effient] 10 mg PO QDAY #30 tablet 11/11/17 Unknown Rx Allergies Allergy/AdvReac Type Severity Reaction Status Date / Time No Known Allergies Allergy Verified 11/25/17 08:56 ED Review of Systems ROS: Stated complaint: CANT SLEEP Other details as noted in HPI Comment: All other systems reviewed and negative Constitutional: denies: chills, fever Respiratory: denies: cough Gastrointestinal: denies: abdominal pain, nausea, vomiting Neurological: denies: headache, weakness, paresthesias, abnormal gait Psychiatric: anxiety. denies: depression, auditory hallucinations, visual hallucinations, homicidal thoughts, suicidal thoughts ED Past Medical Hx - Past Medical History Hx Hypertension: Yes - Social History Smoking Status: Never Smoker Substance Use Type: None - Medications Home Medications: Home Medications Medication Instructions Recorded Confirmed Last Taken Type Aspirin [Aspirin BABY CHEW TAB] 81 mg PO QDAY #30 tab.chew 11/11/17 Unknown Rx AtorvaSTATin [Lipitor] 40 mg PO QHS #30 tablet 11/11/17 Unknown Rx Lisinopril [Zestril TAB] 20 mg PO QDAY #30 tablet 11/11/17 Unknown Rx Metoprolol [Lopressor TAB] 12.5 mg PO BID #30 tablet 11/11/17 Unknown Rx Nitroglycerin [Nitrostat] 0.4 mg SL .Q5MIN PRN #30 tablet 11/11/17 Unknown Rx Prasugrel [Effient] 10 mg PO QDAY #30 tablet 11/11/17 Unknown Rx ED Physical Exam - General Limitations: No Limitations General appearance: alert, in no apparent distress, anxious - Head Head exam: Present: atraumatic, normocephalic, normal inspection - Eye Eye exam: Present: normal appearance - ENT ENT exam: Present: normal exam - Neck Neck exam: Present: normal inspection, full ROM. Absent: tenderness, meningismus, lymphadenopathy, thyromegaly - Respiratory Respiratory exam: Present: normal lung sounds bilaterally - Cardiovascular Cardiovascular Exam: Present: regular rate, normal rhythm, normal heart sounds - GI/Abdominal GI/Abdominal exam: Present: soft, normal bowel sounds. Absent: distended, tenderness, guarding, rebound, rigid, organomegaly, mass, bruit, pulsatile mass , hernia - Extremities Exam Extremities exam: Present: normal inspection, full ROM, normal capillary refill - Back Exam Back exam: Present: normal inspection, full ROM. Absent: CVA tenderness (L) - Neurological Exam Neurological exam: Present: alert, oriented X3, CN II-XII intact, normal gait - Skin Skin exam: Present: warm, intact, normal color ED Course Vital Signs 11/25/17 08:56 Temperature 98.7 F Pulse Rate 74 Respiratory 18 Rate Blood Pressure 161/81 O2 Sat by Pulse 96 Oximetry Critical care attestation.: If time is entered above; I have spent that time in minutes in the direct care of this critically ill patient, excluding procedure time. ED Disposition Clinical Impression: Insomnia Disposition: DC-01 TO HOME OR SELFCARE Is pt being admited?: No Condition: Stable Instructions: Insomnia (ED) Referrals: PRIMARY CARE, [Primary Care Provider] - 3-5 Days
== END 2017-11-25 09:55 | disposition home or self-care (01) ==
LOC: ED 08:35
DX: G47.00 Insomnia, unspecified (principal); I25.10 Atherosclerotic heart disease of native coronary artery without angina pectoris; I10 Essential (primary) hypertension; Z79.82 Long term (current) use of aspirin
CPT/HCPCS: 99282